=== PATIENT | female | born 1995 | race Asian ===

== ENCOUNTER 2019-08-30 16:30 | Emergency (ER) | payer BC ==
[~2019-08-30] VITALS: Ht 154.9 cm; Wt 49.9 kg
[2019-08-30 16:47] VITALS: Ht 154.9 cm; Wt 49.9 kg
[2019-08-30 17:31] LABS: BASOPHIL % 0.3 % (0-2); PLATELET COUNT 236 x10^3mcL (130-400)
[2019-08-30 17:34] LABS: RED CELL DISTRIBUTION WIDTH 14.7 % (11.5-14.5)
[2019-08-30 17:37] LABS: AMPHETAMINE QUAL UR NONE DETECTED (See below)
[2019-08-30 17:38] LABS: CALCIUM 9.1 mg/dL (8.5-10.1); CARBON DIOXIDE 27.2 mmol/L (21-32); CHLORIDE SERUM 105 mmol/L (98-107); CREATININE SERUM 0.9 mg/dL (0.6-1.0); GFR1 > 60 mL/min; GLUCOSE SERUM 87 mg/dL (74-106); POTASSIUM SERUM 3.7 mmol/L (3.5-5.1); SODIUM SERUM 141 mmol/L (136-145)
[2019-08-30 17:49] LABS: ALBUMIN 4.3 g/dL (3.4-5.0); ALKALINE PHOSPHATASE 86 U/L (46-116); ALT/SGPT 60 U/L (14-59); AST/SGOT 29 U/L (15-37); BILIRUBIN TOTAL 0.3 mg/dL (0.20-1.00); T4(THYROXINE) 6.5 ug/dL (4.7-13.3)
[2019-08-30 19:41] VITALS: BP 98/55
== END 2019-08-30 19:38 | disposition home or self-care (01) ==
LOC: ED 16:30
PROVIDERS: Emergency Medicine
DX: R53.1 Weakness (principal); R55 Syncope and collapse; R07.89 Other chest pain; F41.9 Anxiety disorder, unspecified; Z86.2 Personal history of diseases of the blood and blood-forming organs and certain disorders involving the immune mechanism; Z88.1 Allergy status to other antibiotic agents
CPT/HCPCS: Q0092